=== PATIENT | male | born 1990 | race Asian ===

== ENCOUNTER 2025-01-06 11:28 | Outpatient (REF) | payer OTHER, SELFPAY ==
[2025-01-06 16:07] LABS: MANUAL DIFF FLAG NO
[2025-01-06 16:13] LABS: Basophils Percent Auto 0.7 % (0-2); Eosinophils Absolute Auto 0.2 X10*3/uL (0.0-0.4); Eosinophils Percent Auto 3.6 % (0-4); Hematocrit 45.6 % (42.0-52.0); Hemoglobin 15.5 g/dl (14.0-18.0); Imm Gran Abs Auto 0.01 X10*3/uL (0.00-0.03); Imm Gran Pct Auto 0.2 % (0.0-0.4); Lymphocytes Absolute Auto 1.7 X10*3/uL (1.2-4.9); Lymphocytes Percent Auto 37.9 % (20-40); Mean Corpuscular Hemoglobin 29.5 pg (27.0-33.0); Mean Corpuscular Volume 86.7 fL (80.0-98.0); Mean Platelet Volume 10.3 fL (9.4-12.4); Monocytes Absolute Auto 0.4 X10*3/uL (0.1-1.2); Monocytes Percent Auto 9.9 % (2-11); Neutrophils Absolute Auto 2.1 x10*3/uL (2.0-8.3); Neutrophils Percent Auto 47.7 % (45-73); Platelet Count 175 X10*3/uL (160-400); Red Blood Count 5.26 X10*6/uL (4.60-5.80); Red Cell Distribution Width 12.8 % (11.0-16.0); White Blood Count 4.5 X10*3/uL (4.8-10.8)
[2025-01-06 16:28] LABS: Estimated Average Glucose 111 mg/dL; Hemoglobin A1C 147.4433 umol/L; Hemoglobin A1c % 5.5 % (<6.0); Total Hemoglobin (HGBA1C) 4030.8845 umol/L
[2025-01-06 16:51] LABS: Erythrocyte Sedimentation Rate 5 MM/HR (0-15)
[2025-01-06 18:11] LABS: PSA,Total (Free>4and<10) 0.42 ng/mL (0.00-4.00)
[2025-01-06 18:24] LABS: Folate 10.4 ng/mL (> or = 4.0); Vitamin B12 348 pg/mL (200-900)
[2025-01-06 18:27] LABS: Alanine Aminotransferase 34 U/L (0-40); Albumin Level 4.5 g/dL (3.5-5.0); Alkaline Phosphatase 60 U/L (39-117); Anion Gap 10 (12-20); Aspartate Amino Transferase 24 U/L (5-37); Bilirubin Direct 0.1 mg/dL (0.0-0.5); Bilirubin Total 0.4 mg/dL (0.0-1.0); Blood Urea Nitrogen 10 mg/dL (9-16); C Reactive Protein 0.13 mg/dL (< or = 0.50); Calcium 9.4 mg/dL (8.4-10.2); Carbon Dioxide 29 mmol/L (22-29); Chloride 106 mmol/L (96-108); Estimated Glomerular Filt Rate > 60; Glucose Random 92 mg/dL (60-115); Magnesium 2.2 mg/dL (1.6-2.6); Potassium 4.3 mmol/L (3.3-5.1); Sodium 141 mmol/L (135-145); TSH reflex Free T4 2.57 uIU/mL (0.32-4.0); Total Protein 7.3 g/dL (6.5-8.0); Vitamin D 25-OH Total 21.1 ng/mL (>30)
== END 2025-01-06 11:29 | disposition home or self-care (01) ==
LOC: HO.HMGCLDS 11:28
PROVIDERS: PCP Internal Medicine; Visit Provider Physician Assistant Medical
DX: Z00.00 Encounter for general adult medical examination without abnormal findings (principal); Z76.89 Persons encountering health services in other specified circumstances; Z12.5 Encounter for screening for malignant neoplasm of prostate; E66.3 Overweight; Z68.26 Body mass index [BMI] 26.0-26.9, adult; Z13.1 Encounter for screening for diabetes mellitus
CPT/HCPCS: 36415; 80053; 82248; 82306; 82607; 82746; 83036; 83735; 84153; 84443; 85025; 85652; 86140; 96127

== ENCOUNTER 2025-01-06 11:28 | Outpatient (AMB) | payer OTHER, SELFPAY ==
[2025-01-06 11:33] VITALS: BP 116/72; PULSE 67; TEMP 36.2; O2SAT 99; BMI 26.6
--- NOTE | 2025-01-06 11:33 | MHC.PC.OV ---
Vital Signs 01/06/25 11:33 Height 5 ft 8 in Weight 175 lb 0.6 oz BMI 26.6 BP 116/72 Blood Pressure Location Lt brachial Pulse 67 Pulse Source Pulse Oximeter Temp 97.2 F Pulse Oximetry (%) 99 Intake Visit Reasons: Establish Care Intake Note: no issues Code Enforcement Inspector Required: No Allergies No Known Allergies Allergy (Verified 01/06/25 11:54) Medication List - Last Reconciled 01/06/25 by Sofya Costa PA-C No Known Home Meds HPI Establish Care HPI Details The patient is a 34-year-old male presenting to establish a new primary care provider and for a routine physical examination before his upcoming relocation to [place]. 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 During the visit, he did not present with any acute health complaints. The patient has not had blood work done recently, prompting the decision to conduct comprehensive lab tests. He denies a family history of colon cancer or significant personal medical conditions. Notably, there is a maternal history of thyroid-related cancer. The patient also reported no symptoms like lumps, unintentional weight loss, or abnormal gastrointestinal symptoms. 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 - Family presence on the [facility] Medical History (Updated 01/06/25 @ 12:02 by Sofya Costa PA-C) Overweight with body mass index (BMI) of 26 to 26.9 in adult Annual physical exam Establishing care with new doctor, encounter for Family History Mother Thyroid cancer Social History Housing: House Patient Tobacco Use Status: Never used Tobacco e-Cigarette/Vaping Use: Never Used Second Hand Smoke Exposure: No Current occupational status: employed 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 1. Little interest or pleasure in doing things: not at all 2. Feeling down, depressed, or hopeless: not at all 3. Trouble falling or staying asleep, or sleeping too much: not at all 4. Feeling tired or having little energy: not at all 5. Poor appetite or overeating: not at all 6. Feeling bad about yourself - or that you are a failure or have let yourself or your family down: not at all 7. Trouble concentrating on things, such as reading the newspaper or watching television: not at all 8. Moving or speaking so slowly that other people could have noticed. Or the opposite - being so fidgety or restless that you have been moving around a lot more than usual: not at all 9. Thoughts that you would be better off or of hurting yourself in some way: not at all Total score: 0 Depression Screening Interpretation: Negative Depression Screening Done: Yes 44797 - PHQ-9 Billing: Yes Source: Developed by Drs. Memo Arcos, Vira Louis, Rinku Sheehan and colleagues, with an educational janneth from [employer]. Thrive Questionnaire Date Thrive assessed: 01/06/25 I am a: Patient What is your living situation today?: I have a steady place to live Within the past 12 months, did the food you bought not last and you didn't have the money to get more?: Never true Within the past 12 months, did you worry whether your food would run out before you got money to buy more?: Never true Do you have trouble paying for medicines?: No Do you have trouble getting transportation to medical appointments?: No Do you have trouble paying your heating and electricity bill?: No Do you have trouble taking care of your child, family member or friend?: No Do you have trouble with day-to-day activities such as bathing, preparing meals, shopping, managing finances, etc.?: No Are you currently unemployed and looking for a job?: No Are you interested in more education?: No Please select the resources that you would like help with: None THRIVE Score: 0 AUDIT C Alcohol Use Questionnaire (AUDIT-C) 1. How often do you have a drink containing alcohol?: Monthly or less 2. How many drinks containing alcohol do you have on a typical day when you are drinking?: 1 or 2 3. How often do you have six or more drinks on one occasion?: Never Total Score: 1 Score Reviewed/Action Taken: No MOUNIKA-7 AMB Questionnaire MOUNIKA-7 Date MOUNIKA - 7 assessed: 01/06/25 Feeling nervous, anxious, or on edge: 0 = Not at all Not being able to stop or control worryin = Not at all Worrying too much about different things: 0 = Not at all Trouble relaxin = Not at all Being so restless that it is hard to sit still: 0 = Not at all Becoming easily annoyed or irritable: 0 = Not at all Feeling afraid as if something awful might happen: 0 = Not at all Total MOUNIKA-7 score (0-4 normal; 5-9 mild; 10-14 moderate; 15-21 severe): 0 Source: Developed by Drs. Memo Arcos, Vira Louis, Rinku Sheehan and colleagues, with an educational janneth from [employer]. MOUNIKA-7 Assessment Billing MOUNIKA-7 Assessment Tool: MOUNIKA-7 Assessment 25273 Review of Systems Const Details: - General: Denies unintentional weight gain/loss. - Cardiovascular: Denies chest pain, palpitations. - Respiratory: Denies shortness of breath. - Gastrointestinal: Denies abdominal pain, changes in bowel habits, black or bloody stools. - Endocrine: Denies neck lumps. - Skin: Denies rashes. - General/family: Denies family history of colon cancer; reports maternal history of fibroid cancer. Physical exam (Primary Care) Vital Signs: Last Vital Signs Temp 97.2 F 01/06/25 11:33 Pulse 67 01/06/25 11:33 BP 116/72 01/06/25 11:33 Pulse Ox 99 01/06/25 11:33 Care Plan Goal for BP management: <130/90 at Goal BMI result Body Mass Index 26.6 BMI Assessment/Plan discussion: High BMI High, discussed plan: lifestyle, weight reduction, dietary, physical activity and alcohol moderation PHQ-9: PHQ-9 Score PHQ-9: Total score 0 01/06/25 11:42 Depression Screening Interpretation: Negative Thrive Assessment: Date of Thrive Assessment Date Thrive assessed 01/06/25 01/06/25 11:42 Const Other: Appearance: Alert. Oriented X3. No acute distress. Head: Normal external exam. Normocephalic. Atraumatic. Eyes: Pupils are equal, round, and reactive to light. Extraocular movements intact. Conjunctiva and sclera normal. Eyelids normal. Ears: External auditory canal normal. Tympanic membranes normal. Throat: Pharynx normal. Uvula midline. Moist mucous membranes. Neck: Normal inspection. Neck supple. Full range of motion. No adenopathy. Thyroid Normal. No meningeal signs. No neck mass noted. Cardiovascular: Normal heart rate and rhythm. Heart sound normal. No murmurs noted. Pulses normal throughout. Respiratory: No respiratory distress. Painless inspiration. Breath sounds normal. No wheezes/rales/rhonchi noted. Chest nontender. No accessory muscle usage noted or decreased air movement noted. Abdomen: Soft and nontender. Bowel sounds normal in all 4 quadrants. No distention noted. No organomegaly noted. No visible injury noted. Back: No costovertebral angle tenderness. Full range of motion noted. Skin: Skin warm and dry. Normal skin color. Normal skin turgor. No rashes/lesions/lacerations noted. Extremities: No lower extremity edema. Extremities exhibit normal range of motion. Extremities nontender. Neuro: Oriented X 3. No motor deficit. No sensory deficit. Reflexes normal. Results Reviewed Results Reviewed: - Labs: CBC, CMP, liver panel, magnesium, lipid panel, PSA, thyroid function, vitamin B12, and vitamin D scheduled. Coding Level of Care Code New Pt Level 4 (65567) Diagnoses Establishing care with new doctor, encounter for Annual physical exam Z00. Overweight with body mass index (BMI) of 26 to 26.9 in adult E66.3; Z68.26 Additional Codes PHQ-9 - 69176 - PHQ-9 Billing: Yes ([id number]) MOUNIKA-7 Assessment Billing - MOUNIKA-7 Assessment Tool: MOUNIKA-7 Assessment 95786 ([id number]) Assessment & Plan Assessment & Plan (1) Establishing care with new doctor, encounter for: Code(s): Z76.89 - Persons encountering health services in other specified circumstances Category: Medical (2) Annual physical exam: Code(s): Z00. - Encounter for general adult medical examination without abnormal findings Category: Medical (3) Overweight with body mass index (BMI) of 26 to 26.9 in adult: Code(s): E66.3 - Overweight; Z68.26 - Body mass index [BMI] 26.0-26.9, adult Category: Medical Plan Plan Patient was informed and verbally consented to the use of an ambient scribe for clinic note documentation during this visit. During the consultation, I discussed the importance of maintaining routine health screenings and the completion of necessary blood work as part of the patient?s health maintenance. We covered the recommended lab panels including a CBC, CMP, liver function tests, and lipid panel, as well as vitamin and hormone-related tests. These tests are to establish baseline health metrics given the upcoming relocation and to screen for any underlying conditions. The patient was informed about the logistics of conducting the blood work and reassured that the results would be communicated via phone as he would not be returning to the clinic. I addressed the patient's family cancer history, outlining that the specific risk of colon cancer did not necessitate a colonoscopy unless concerning symptoms develop or if he has a family history of colon cancer, which he does not. Orders: Orders Magnesium Today Z00.00 - Encounter for general adult medical examination without abnormal findings Liver Panel Today Z00.00 - Encounter for general adult medical examination without abnormal findings Hemoglobin A1c Today Z00.00 - Encounter for general adult medical examination without abnormal findings TSH reflex Free T4 Today Z00.00 - Encounter for general adult medical examination without abnormal findings Vitamin B12 and Folate Today Z00.00 - Encounter for general adult medical examination without abnormal findings C Reactive Protein Today Z00.00 - Encounter for general adult medical examination without abnormal findings Complete Blood Count Auto Diff Today Z00.00 - Encounter for general adult medical examination without abnormal findings Erythrocyte Sedimentation Rate Today Z00.00 - Encounter for general adult medical examination without abnormal findings Lipid Panel Today Z00.00 - Encounter for general adult medical examination without abnormal findings PSA,Total (Free>4and<10) Today Z00.00 - Encounter for general adult medical examination without abnormal findings Vitamin D 25-OH Total Today Z00.00 - Encounter for general adult medical examination without abnormal findings Comprehensive Met. Panel Today Z00.00 - Encounter for general adult medical examination without abnormal findings Patient Instructions: - Arrange to have blood work done, fasting for the lipid panel. - Go to the designated lab location without needing an appointment, provide your name and details to lab personnel. - Return for follow-up for any new symptoms like unexplained weight changes, growths, or significant changes in bowel movement. - Stay informed about your health condition considering your family history and maintain routine health visits. - Call the clinic if you have any questions or need further assistance with your health before transitioning to a new provider in [place].
== END 2025-01-06 12:03 | disposition home or self-care (01) ==
PROVIDERS: PCP Internal Medicine; Visit Provider Physician Assistant Medical
DX: Z76.89 Persons encountering health services in other specified circumstances (principal); Z00.00 Encounter for general adult medical examination without abnormal findings; E66.3 Overweight; Z68.26 Body mass index [BMI] 26.0-26.9, adult